=== PATIENT | male | born 1945 | race Caucasian/White ===

== ENCOUNTER 2018-11-26 09:12 | Outpatient (CLI) | payer MEDICARE ==
--- NOTE | 2018-11-26 11:54 | CT ---
CT ABDOMEN WITH AND WITHOUT CONTRAST: Multiple axial tomograms were obtained through the abdomen pre- and post-IV contrast. Postcontrast i mages were obtained in a portal venous phase and delayed venous phase. INDICATION: Neoplasm. Cyst. There is a history of prostate CA and prior prostatectomy. History of renal stones . COMPARISON: Comparison is made to CT abdomen 08/06/2015. That exam described a complex cystic lesion superior lef t kidney with peripheral calcification. It was noted to be stable when compared to an exam of 2013. FINDINGS: Lung bases appear clear with some chronic parenchymal changes which appear stable. Liver, spleen, and pancreas unremarkable. There echogenicity seen in the neck of the gallbladder suggesting tiny gallstones. No evidence of biliary duct dilatation. Adrenal glands normal. Evaluation of the kidneys again shows a complex cystic lesion superior left kidney with peripheral ca lcification seen along its posterior wall. This lesion is unchanged in size continuing to measure ap proximately 2.7 x 2.3 cm in the axial plane. It continues to be low density on postcontrast images. No significant enhancement noted. Density measurements recorded at 14 precontrast, 17 on both postc ontrast phases. A 1.0 cm cystic lesion posterior right renal cortex is stable. There are at least 3 small nonobstructing calculi in the upper collecting structures of the right kid kassandra with the largest measuring approximately 4 mm. These have increased in number and size since the prior study. There is no hydronephrosis. The visualized ureters are normal caliber. The visualized bowel loops are unremarkable. Aorta unremarkable. IMPRESSION: 1. The complex cystic lesion superior left kidney remains stable. 2. Nonobstructing calculi in the upper collecting structures right kidney noted as described above. 3. Small cyst posterior right renal cortex is stable. 4. Evidence of cholelithiasis. Correlate with gallbladder ultrasound. POS: [facility]
[2018-11-26] MEDS ORDERED: Iopamidol 370 76% 100 ML VIAL ONE (17:18)
== END 2018-11-26 09:13 | disposition home or self-care (01) ==
LOC: BICCT 09:12
PROVIDERS: ATTEND Urology
DX: D49.512 Neoplasm of unspecified behavior of left kidney (principal); N28.1 Cyst of kidney, acquired; N20.0 Calculus of kidney; K80.20 Calculus of gallbladder without cholecystitis without obstruction
CPT/HCPCS: 74170; 82565; Q9967

== ENCOUNTER 2019-11-27 15:28 | Emergency (ER) | payer MEDICARE | END 2019-11-27 17:31 | disposition home or self-care (01) | LOC: ERS 15:28 | DX: S60.410A Abrasion of right index finger, initial encounter (principal); I25.2 Old myocardial infarction; E78.5 Hyperlipidemia, unspecified; E78.00 Pure hypercholesterolemia, unspecified; Z23 Encounter for immunization; X58.XXXA Exposure to other specified factors, initial encounter | CPT/HCPCS: 90471 ==

== ENCOUNTER 2020-06-20 11:47 | Emergency (ER) | payer MEDICARE, OTHER ==
[2020-06-21 12:36] LABS: SARS-CoV-2 MS2 Positive; SARS-CoV-2 N Gene Negative; SARS-CoV-2 S Gene Negative; SARS-CoV-2 by NAA Not Detected (NotDetected); SARS-CoV-2 orf1ab Negative
== END 2020-06-20 13:55 | disposition home or self-care (01) ==
LOC: ERS 11:47
DX: Z20.828 Contact with and (suspected) exposure to other viral communicable diseases (principal); E78.5 Hyperlipidemia, unspecified; I25.10 Atherosclerotic heart disease of native coronary artery without angina pectoris; E78.00 Pure hypercholesterolemia, unspecified; Z95.1 Presence of aortocoronary bypass graft; I25.2 Old myocardial infarction
CPT/HCPCS: 87635; 99283; U0003

== ENCOUNTER 2022-04-21 08:12 | Outpatient (CLI) | payer MEDICARE ==
[2022-04-21] MEDS ORDERED: Iopamidol-370 76% 500 ML 1 ML ONE (11:46)
== END 2022-04-21 08:13 | disposition home or self-care (01) ==
LOC: BICCT 08:12
PROVIDERS: ATTEND Internal Medicine Cardiovascular Disease
DX: I71.2 Thoracic aortic aneurysm, without rupture (principal); Q27.8 Other specified congenital malformations of peripheral vascular system; N28.1 Cyst of kidney, acquired; N28.9 Disorder of kidney and ureter, unspecified
CPT/HCPCS: 71275; 82565; Q9967